=== PATIENT | female | born 1960 | race Caucasian/White ===

== ENCOUNTER → 2016-11-15 | Outpatient (CLI) | payer OTHER ==
--- NOTE | 2016-11-15 16:43 | DX ---
Lumbar Spine, Two Views. HISTORY: Recent fall on ice with left-sided back pain. Comparisons: None. FINDINGS: Five lumbar-type vertebral bodies. Mild anterior wedge compression fracture of L3 vertebral body involving the superior endplate anteriorly. No significant spondylolisthesis. Disk height narro wing L4-L5 and L5-S1. Facet hypertrophy and sclerosis seen at L3-L4 through L5-S1. IMPRESSION: 1. Mild anterior wedge compression fracture of L3 vertebral body. 2. Degenerative disk and degenerative joint disease L3-L4 through L5-S1. Message was left for Dr. Yang Doyle with the answering service on 15 November 2016 at 1638 hours.
== END ==
LOC: BMCIMAGING 15:43
PROVIDERS: ATTEND Internal Medicine Rheumatology
DX: S32.030A Wedge compression fracture of third lumbar vertebra, initial encounter for closed fracture (principal)

== ENCOUNTER → 2017-12-24 | Outpatient (CLI) | payer OTHER | LOC: BMCIMAGING 10:08 | PROVIDERS: ATTEND Internal Medicine Rheumatology | DX: Z13.820 Encounter for screening for osteoporosis (principal); Z78.0 Asymptomatic menopausal state ==